=== PATIENT | female | born 1970 | race Caucasian/White ===

== ENCOUNTER 2025-01-02 15:45 | Emergency (ER) | payer OTHER ==
[2025-01-02] MEDS ORDERED: Tetracaine 0.5% PF 4 ML BOT ONE (16:50)
[2025-01-02] MEDS ORDERED: Fluorescein Opthalmic Strip ONE (16:50)
== END 2025-01-02 17:18 | disposition home or self-care (01) ==
LOC: NAV ERS 15:45
DX: H16.002 Unspecified corneal ulcer, left eye (principal); I10 Essential (primary) hypertension; F17.210 Nicotine dependence, cigarettes, uncomplicated; Z79.899 Other long term (current) drug therapy
CPT/HCPCS: 99283

== ENCOUNTER 2025-05-10 11:29 | Emergency (ER) | payer OTHER, SELFPAY ==
[~2025-05-10 11:29] MED LIST: Iopamidol 370 76% 100 ML VIAL ONE
[2025-05-10 12:18] LABS: ALT (SGPT) 24 U/L (Less than 34); AST (SGOT) 37 U/L (11-34); Albumin 4.5 g/dL (3.1-4.5); Alkaline Phosphatase 85 U/L (40-110); Anion Gap 17 mmol/L (10-20); BUN (Urea Nitrogen) 19 mg/dL (9.8-20.1); Bilirubin, Total 0.8 mg/dL (0.3-1.2); Calc. Creatinine Clearance 0 mL/min (70-130); Calcium 9.6 mg/dL (7.8-10.44); Carbon Dioxide 24 mmol/L (22-29); Chloride 105 mmol/L (98-107); Globulin 2.9 g/dL (2.4-3.5); Glucose 173 mg/dL (70-105); Potassium 3.6 mmol/L (3.5-5.1); Sodium 142 mmol/L (136-145)
[2025-05-10] MEDS ORDERED: Orphenadrine Citrate 60 MG/2 ML VIAL ONE (12:18)
[2025-05-10] MEDS ORDERED: Lisinopril 10 MG TAB ONE (12:18)
[2025-05-10 12:22] LABS: Hematocrit 44.6 % (36.0-47.0); Hemoglobin 15.5 g/dL (12.0-16.0); MDiff Complete? YES; Mean Corpuscular Hemoglobin 31.4 pg (27.0-31.0); Mean Corpuscular Volume 90.5 fl (78.0-98.0); Platelet Adequacy Comment Appears Adequate; Platelet Count 305 10x3/uL (130-400); Red Blood Cell (RBC) Count 4.92 mill/uL (4.20-5.40); White Blood Cell (WBC) Count 9.9 10x3/uL (4.8-10.8)
== END 2025-05-10 13:53 | disposition home or self-care (01) ==
LOC: NAV ERS 11:29
DX: S13.4XXA Sprain of ligaments of cervical spine, initial encounter (principal); I10 Essential (primary) hypertension; F17.210 Nicotine dependence, cigarettes, uncomplicated; Z79.899 Other long term (current) drug therapy; Y04.8XXA Assault by other bodily force, initial encounter
CPT/HCPCS: 70450; 70498; 72220; 80053; 85025; 96374; J2360; J7030; Q9967